=== PATIENT | male | born 1980 | race Caucasian/White ===

== ENCOUNTER 2021-09-02 06:27 | Emergency (ER) | payer OTHER, SELFPAY ==
[2021-09-02 06:30] VITALS: PULSE 117; RESP 16; TEMP 36.4; O2SAT 99
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
[2021-09-02] MEDS: Lidocaine 5% Patch 1 PATCH TP (06:50)
[2021-09-02] MEDS: Acetaminophen 500 MG TAB 1000 MG PO (06:51)
[2021-09-02] MEDS: predniSONE 20 MG TAB 60 MG PO (06:51)
[2021-09-02] MEDS: Ketorolac 30 MG/ML VIAL IM (06:51)
--- NOTE | 2021-09-02 07:24 | DI.RAD_ITS ---
Exam(s) XR LUMBAR SPINE COMPLETE EXAM: XR LUMBAR SPINE COMPLETE CLINICAL HISTORY: midline lower L4-L5 pain, hx of old injury TECHNIQUE: COMPARISON: No exams were available for comparison FINDINGS: Five views were obtained. The intervertebral disc spaces appear fairly well maintained. There is no evidence of fracture or dislocation. No evidence of spondylolysis or spondylolisthesis. IMPRESSION: No evidence of acute process. RADIATION DOSE DELIVERED: Total DLP
--- OUTSIDE RECORDS SUMMARY | 2021-09-02 08:03 | XMS_ITS | Continuity of Care Document ---
:1980 Author Organization [facility] Address [address] [place] [address] Allergies, Adverse Reactions, Alerts No Known Allergies Problem List Condition Effective Dates Status Health Status Informant Schizophrenia(Confirmed) Active Tobacco use(Confirmed) Active patie nt Encounter Date(s): 06/19/18 - 06/19/18 [facility] [address] [place] [address] [place] Encounter Diagnosis Psychosis (Discharge Diagnosis) - 06/19/18 Schizophrenia (Discharge Diagnosis) - 06/19/18 Hypercalcemia (Discharge Diagnosis) - 06/19/18 Discharge Disposition: Home or Self Care Attending Physician: MD Espinosa Neil Holland Admitting Physician: MD Jesús, Rob Desai Assessment and Plan Extracted from: Title: ED Note Author: MD Jesús, Rob Desai Date: 06/19/18 Physician Procedure Note No qualifying data available. Diagnostic Results No qualifying data available. Mental Status 06/19/18 Eye Opening Response Jessica Spontaneously Best Verbal Response [place] Oriented Best Motor Response Jessica Obeys commands Jessica Coma Score 15 Results Laboratory List Name Date .Estimated Glomerular Filtration Rate 06/19/18 Alcohol Level (ETOH) 06/19/18 Automated Diff 06/19/18 CBC w/ Diff 06/19/18 Comprehensive Metabolic Panel 06/19/18 Drugs of Abuse Screen, Urine 06/19/18 TSH Reflex 06/19/18 Urinalysis with Microscopic, if indicated (Urinalysis w/ Microscopic, if 06/19/18 indicated) Hematology Most recent to oldest [Reference Range]: 1 WBC [4.0-10.0 x10^3/mcL] 6.7 x10^3/mcL (06/19/18 9:12 PM) RBC [4.20-5.50 x10^6/mcL] 4.99 x10^6/mcL (06/19/18 9:12 PM) Hgb [14.0-18.0 g/dL] 14.6 g/dL (06/19/18 9:12 PM) Hct [41.0-51.0 %] 41.2 % (06/19/18 9:12 PM) MCV [82-101 fL] 82 fL (06/19/18 9:12 PM) MCH [27-34 pg] 29 pg (06/19/18 9:12 PM) MCHC [32-36 g/dL] 35 g/dL (06/19/18 9:12 PM) RDW [11.5-14.5 %] 12.6 % (06/19/18 9:12 PM) Platelets [150-450 x10^3/mcL] 207 x10^3/mcL (06/19/18 9:12 PM) Neutro Auto 70 % *NA* (06/19/18 9:12 PM) Lymph Auto 24 % *NA* (06/19/18 9:12 PM) [place] Auto 4 % *NA* (06/19/18 9:12 PM) Eos, Auto 1 % *NA* (06/19/18 9:12 PM) Basophil Auto 0 % *NA* (06/19/18 9:12 PM) Neutro Absolute [1.8-8.0 x10^3/mcL] 4.7 x10^3/mcL (06/19/18 9:12 PM) Lymph Absolute [1.2-5.0 x10^3/mcL] 1.6 x10^3/mcL (06/19/18 9:12 PM) [place] Absolute [0.2-0.8 x10^3/mcL] 0.3 x10^3/mcL (06/19/18 9:12 PM) Eos Absolute [0.0-0.5 x10^3/mcL] 0.0 x10^3/mcL (06/19/18 9:12 PM) Chemistry Most recent to oldest [Reference Range]: 1 Sodium Level [136-145 mEq/L] 133 mEq/L *LOW* (06/19/18 9:12 PM) Potassium Level [3.5-5.1 mEq/L] 4.0 mEq/L (06/19/18 9:12 PM) Chloride Level [98-110 mEq/L] 96 mEq/L *LOW* (06/19/18 9:12 PM) CO2 Lvl [20-28 mEq/L] 25 mEq/L (06/19/18 9:12 PM) Anion Gap [5-15 mEq/L] 12 mEq/L (06/19/18 9:12 PM) Calcium Level [8.5-10.4 mg/dL] 11.1 mg/dL *HI* (06/19/18 9:12 PM) Glucose Level [70-100 mg/dL] 301 mg/dL *HI* (06/19/18 9:12 PM) BUN [5-23 mg/dL] 10 mg/dL (06/19/18 9:12 PM) Creatinine Level [0.5-1.3 mg/dL] 1.0 mg/dL (06/19/18 9:12 PM) eGFR AA [>=60 mL/min/1.73 m2] 103 mL/min/1.73 m2 (06/19/18 9:12 PM) eGFR Non-AA [>=60 mL/min/1.73 m2] 85 mL/min/1.73 m2 (06/19/18 9:12 PM) Protein Total [6.4-8.2 g/dL] 7.7 g/dL (06/19/18 9:12 PM) Albumin Level [3.4-5.0 g/dL] 4.2 g/dL (06/19/18 9:12 PM) Bilirubin Total [0.0-1.0 mg/dL] 0.5 mg/dL (06/19/18 9:12 PM) Alk Phos [40-150 IntlUnit/L] 60 IntlUnit/L (06/19/18 9:12 PM) AST [0-37 IntlUnit/L] 50 IntlUnit/L *HI* (06/19/18 9:12 PM) ALT [0-65 IntlUnit/L] 82 IntlUnit/L *HI* (06/19/18 9:12 PM) Calc Osm [275-300 mOsm/L] 294 mOsm/L (06/19/18 9:12 PM) TSH [0.34-4.82 Microunit/mL] 1.17 Microunit/mL (06/19/18 9:12 PM) Toxicology Most recent to oldest [Reference Range]: 1 Alcohol Lvl [<=10 mg/dL] <10 mg/dL (06/19/18 9:12 PM) Alcohol % <0.010 g%-w/v *NA* (06/19/18 9:12 PM) Amphetamine Screen Ur [Neg] Neg (06/19/18 9:12 PM) Barbituate Screen Ur [Neg] Neg (06/19/18 9:12 PM) Benzodiazepines Ur [Neg] Neg (06/19/18 9:12 PM) Cannabinoid Screen Ur [Neg] Neg (06/19/18 9:12 PM) Cocaine Screen Ur [Neg] Neg (06/19/18 9:12 PM) U Methadone Scr [Neg] Neg (06/19/18 9:12 PM) U PCP Screen [Neg] Neg (06/19/18 9:12 PM) Opiate Screen Ur [Neg] Neg (06/19/18 9:12 PM) U Oxycodone Scr [Neg] Neg (06/19/18 9:12 PM) Urinalysis Most recent to oldest [Reference Range]: 1 UA Source Clean Catch (06/19/18 9:12 PM) UA Clarity [Clear] Clear (06/19/18 9:12 PM) UA Color [Yellow] Straw (06/19/18 9:12 PM) UA pH 6.0 (06/19/18 9:12 PM) UA Spec Grav [1.005-1.030] 1.000 *LOW* (06/19/18 9:12 PM) UA Glucose [Neg] >500 *ABN* (06/19/18 9:12 PM) UA Ketones [Neg] Neg (06/19/18 9:12 PM) UA Blood [Neg] Neg (06/19/18 9:12 PM) UA Protein [Neg] Neg (06/19/18 9:12 PM) UA Bili [Neg] Neg (06/19/18 9:12 PM) UA Urobilinogen <2.0 *NA* (06/19/18 9:12 PM) UA Nitrite [Neg] Neg (06/19/18 9:12 PM) UA Leuk Est [Neg] Neg (06/19/18 9:12 PM) UA Micro Ind? Not Indicated *NA* (06/19/18 9:12 PM) Vital Signs Most recent to oldest [Reference Range]: 1 Temperature Oral [35.8-37.3 Deg C] 37 Deg C (06/19/18 8:51 PM) Heart Rate Monitored [60-100] 131 *HI* (06/19/18 8:51 PM) Respiratory Rate [14-20 br/min] 22 br/min *HI* (06/19/18 8:51 PM) Systolic Blood Pressure [90-140 mmHg] 134 mmHg (06/19/18 8:51 PM) Diastolic Blood Pressure [60-90 mmHg] 116 mmHg *HI* (06/19/18 8:51 PM) Modified MEWS Temperature 35.5 - 38.0 DegC (06/19/18 8:50 PM) Modified MEWS Heart Rate 125 -139 bpm (06/19/18 8:50 PM) Modified MEWS Respiratory Rate 16 - 24 br/min (06/19/18 8:50 PM) Modified MEWS Systolic Blood Pressure 100 - 160 mmHg (06/19/18 8:50 PM) Modified MEWS Oxygen Saturation 92% - 100% (06/19/18 8:50 PM) Modified MEWS Conscious Level Alert (06/19/18 8:50 PM) Modified MEWS Total Score 2 (06/19/18 8:50 PM) Social History Social History Type Response Smoking Status 10 or more cigarettes/day in last 30 days; Type: Cigarettes; Tobacco use per day: 10 cigs per day; entered on: 06/19/18 Sex Hospital Discharge Instructions Patient Purjpkigp97/04/2019 20:10:32PSYCHOSISPsychosis Psychosis is a symptom of certain mental health problems. It involves perceiving reality differentlyfrom those around you. The difference between reality and what you think become blurred in your mind. Other mental health conditions, physical diseases, traumatic experiences, or drugs and toxins may bring on psychotic symptoms or behavior. There are different kinds of psychosis: ??? Drug-induced because of alcohol, methamphetamine, cocaine, LSD, PCP, or??others ??? Bipolar disorder ??? Depression ??? Schizophrenia ??? Dementia Symptoms The symptoms of psychosis may not all be the same for each person. But they usually involve: ??? Hallucinations. Seeing, hearing, feeling, or even tasting or smelling things that are not there ??? Delusions.??Believing something that is not true, or false beliefs that are not part of a person's sikhism or cultural background. There may also be disturbances in thinking, speech, and behavior, which can include: ??? Hearing voices that others do not hear ??? Seeing things that others do not see ??? Racing thoughts ??? Lack of energy ??? Feeling very fearful ??? Disorganized speech ??? Intentional or unintentional bodily harm to others ??? Paranoia ??? Trouble thinking or concentrating clearly ??? Depression, feeling suicidal ??? Insomnia ??? Withdrawal from those around you Treatment for psychosis depends on the cause. Medicine, with or without psychotherapy, is often used. Home care ??? Find a healthcare provider and therapist who meet your needs. ??Seek help when you feel like your symptoms are returning ??? Be certain to tell each of your healthcare providers about all of the prescription drugs, [id number] medicines, and supplements you take.??Certain supplements interact with medicines and can result in dangerous side effects.??Ask your pharmacist when you have questions about drug interactions. ??? Be sure to take your medicine as directed even if you think you don't need it. ??? Follow-up with lab tests as advised by your healthcare provider. ??? Talk with your family about your feelings and thoughts. Ask them to help you recognize any behavior changes so you can get help and, if needed, medicines can be adjusted. Follow-up care Follow up with your counselor, therapist or psychiatrist as advised. Call 911 Call 911 if you: ??? Have suicidal thoughts, a suicide plan, and the means to carry out the plan ??? Have troubled breathing ??? Are very confused ??? Are very drowsy or have trouble awakening ??? Faint or lose??consciousness ??? Have a rapid heart rate, very low heart rate, or a new irregular heart rate ??? Have a seizure When to seek medical advice Call your healthcare provider right away if any of these occur: ??? Gradual or rapid return of psychotic symptoms ??? Feeling like you want to harm yourself or another ??? Feeling extremely depressed ??? Feeling very anxious, agitated, or angry ??? Feeling out of control or being controlled by others ??? Unable to care for yourself ??? Seeing things or hearing voices that you know aren't real ?? [id number] [employer]. [address] [place] [address], [place] [address]. All rights reserved. This information is not intended as a substitute for professional medical care. Always follow your healthcare professional's instructions. Follow Up Care06/19/2018 20:10:32With:Follow up with Primary Care Provider Address:Unknown When:Within 1 Week(s) only if needed
--- OUTSIDE RECORDS SUMMARY | 2021-09-02 08:03 | XMS_ITS | Continuity of Care Document ---
:1980 Author Organization [facility] Address [address] [place] [id number] Encounter Date(s): 08/06/20 - 08/06/20 [facility] [address] [place] [address] [place] Encounter Diagnosis Acute chest pain (Discharge Diagnosis) - 08/06/20 Discharge Disposition: Home or Self Care Attending Physician: DO Montalvo Christopher Justin Admitting Physician: DO Montalvo Christopher Justin Allergies, Adverse Reactions, Alerts No Known Allergies Assessment and Plan Extracted from: Title: ED Note Author: DO Montalvo Christopher Justin Da te: 08/06/20 Physician Procedure Note No qualifying data available. Diagnostic Results XR Chest 2 Views ?? 08/06/20 17:26:53 ?? PROCEDURE: 2 views chest ?? Date: 08/06/2020 5:17 PM ?? HISTORY: 39 years old Male. Chest pain ?? COMPARISON: None ?? FINDINGS: ?? The trachea is midline. The heart size is within normal limits. The lungs are adequately aerated.. There is no focal consolidation . There is no pneumothorax noted. ?? There is no evidence of decompensated h eart failure . There is no evidence of a pleural effusion. ? IMPRESSION: ?? 1. No acute pulmonary process. ?? Signed By: MD Rustam FACR, Peña franco EKG Sinus tachycardia, rate 101, normal axis, normal UT and QT intervals, normal QRS duration, no ST segment elevations Mental Status 08/06/20 Eye Opening Response [place] Spontaneously Best Verbal Response [place] Oriented Best Motor Response Jessica Obeys commands Jessica Coma Score 15 Problem List Condition Effective Dates Status Health Status Informant Schizophrenia(Confirmed) Active Results Laboratory List Name Date .Estimated Glomerular Filtration Rate 08/06/20 Automated Diff 08/06/20 CBC w/ Diff 08/06/20 Comprehensive Metabolic Panel (Chem 12) 08/06/20 Lipase Level 08/06/20 Troponin I 08/06/20 Hematology Most recent to oldest [Reference Range]: 1 WBC [4.0-10.0 x10^3/mcL] 8.1 x10^3/mcL (08/06/20 4:46 PM) RBC [4.20-5.50 x10^6/mcL] 5.08 x10^6/mcL (08/06/20 4:46 PM) Hgb [14.0-18.0 g/dL] 15.0 g/dL (08/06/20 4:46 PM) Hct [41.0-51.0 %] 43.0 % (08/06/20 4:46 PM) MCV [82-101 fL] 85 fL (08/06/20 4:46 PM) MCH [27-34 pg] 30 pg (08/06/20 4:46 PM) MCHC [32-36 g/dL] 35 g/dL (08/06/20 4:46 PM) RDW [11.5-14.5 %] 12.2 % (08/06/20 4:46 PM) Platelets [150-450 x10^3/mcL] 181 x10^3/mcL (08/06/20 4:46 PM) Neutro Auto 61 % *NA* (08/06/20 4:46 PM) Lymph Auto 33 % *NA* (08/06/20 4:46 PM) [place] Auto 4 % *NA* (08/06/20 4:46 PM) Eos, Auto 2 % *NA* (08/06/20 4:46 PM) Basophil Auto 0 % *NA* (08/06/20 4:46 PM) Neutro Absolute [1.8-8.0 x10^3/mcL] 4.9 x10^3/mcL (08/06/20 4:46 PM) Lymph Absolute [1.2-5.0 x10^3/mcL] 2.7 x10^3/mcL (08/06/20 4:46 PM) [place] Absolute [0.2-0.8 x10^3/mcL] 0.4 x10^3/mcL (08/06/20 4:46 PM) Eos Absolute [0.0-0.5 x10^3/mcL] 0.1 x10^3/mcL (08/06/20 4:46 PM) Basophil Absolute [0.0-0.3 x10^3/mcL] 0.0 x10^3/mcL (08/06/20 4:46 PM) Chemistry Most recent to oldest [Reference Range]: 1 Sodium Level [136-145 mEq/L] 136 mEq/L (08/06/20 4:46 PM) Potassium Level [3.5-5.1 mEq/L] 3.7 mEq/L (08/06/20 4:46 PM) Chloride Level [98-110 mEq/L] 98 mEq/L (08/06/20 4:46 PM) CO2 Lvl [20-28 mEq/L] 27 mEq/L (08/06/20 4:46 PM) Anion Gap [5-15 mEq/L] 11 mEq/L (08/06/20 4:46 PM) Calcium Level [8.5-10.4 mg/dL] 9.5 mg/dL (08/06/20 4:46 PM) Glucose Level [70-100 mg/dL] 106 mg/dL *HI* (08/06/20 4:46 PM) BUN [5-23 mg/dL] 15 mg/dL (08/06/20 4:46 PM) Creatinine Level [0.5-1.3 mg/dL] 0.8 mg/dL (08/06/20 4:46 PM) eGFR AA [>=60 mL/min/1.73 m2] 123 mL/min/1.73 m2 (08/06/20 4:46 PM) eGFR Non-AA [>=60 mL/min/1.73 m2] 101 mL/min/1.73 m2 (08/06/20 4:46 PM) Protein Total [6.4-8.2 g/dL] 7.4 g/dL (08/06/20 4:46 PM) Albumin Level [3.4-5.0 g/dL] 4.3 g/dL (08/06/20 4:46 PM) Bilirubin Total [0.0-1.0 mg/dL] 0.4 mg/dL (08/06/20 4:46 PM) Alk Phos [40-150 IntlUnit/L] 65 IntlUnit/L (08/06/20 4:46 PM) AST [0-37 IntlUnit/L] 15 IntlUnit/L (08/06/20 4:46 PM) ALT [0-65 IntlUnit/L] 24 IntlUnit/L (08/06/20 4:46 PM) Calc Osm [275-300 mOsm/L] 291 mOsm/L (08/06/20 4:46 PM) Lipase Level [8-78 IntlUnit/L] 30 IntlUnit/L (08/06/20 4:46 PM) Troponin-I [<=0.03 ng/mL] 0.00 ng/mL (08/06/20 4:46 PM) Radiology Reports Exam Date Time Procedure Performing Provider Status 08/06/20 5:18 PM XR Chest 2 Views Vesna Razo; Dhruv (Verif ied) Notes:(XR Chest 2 Views) Reason For Exam: Chest painFinal Result PROCEDURE: 2 views chest Date: 08/06/2020 5:17 PM HISTORY: 39 years old Male. Chest pain COMPARISON: None FINDINGS: The trachea is midline. The heart size is within normal limits. The lungs are adequately aerated..There is no focal consolidation . There is no pneumothorax noted. There is no evidence of decompensated heart failure . There is no evidence of a pleural effusion. IMPRESSION: 1. No acute pulmonary process. Final Signed by: MD Rustam FACR, Peña Griggs Signed (Electronic Signature): 08/06/2020 5:30 pm Vital Signs Most recent to oldest 1 2 3 [Reference Range]: Temperature Oral [36-38 Deg C] 36.8 Deg C 36.8 Deg C (08/06/20 4:42 PM) (08/06/20 4:30 PM) Peripheral Pulse Rate [60-100 100 bpm 100 bpm bpm] (08/06/20 4:42 PM) (08/06/20 4:30 PM) Heart Rate Monitored [60-100] 98 104 (08/06/20 6:52 PM) *HI* (08/06/20 5:31 PM) Respiratory Rate [14-20 br/min] 16 br/min 17 br/min 19 br/min (08/06/20 6:52 PM) (08/06/20 5:31 PM) (08/06/20 4:4 2 PM) Blood Pressure [90-140/60-90 146/88 mmHg 145/87 mmHg 145 /100 mmHg mmHg] *HI* *HI* *HI* (08/06/20 6:52 PM) (08/06/20 5:31 PM) (08/06/20 4:4 2 PM) Mean Arterial Pressure, Cuff 108 mmHg 113 mmHg [65-140 mmHg] (08/06/20 6:52 PM) (08/06/20 4:42 PM) Modified MEWS Temperature 35.5 - 38.0 DegC (08/06/20 4:30 PM) Modified MEWS Heart Rate 56 - 109 bpm (08/06/20 4:30 PM) Modified MEWS Respiratory Rate 16 - 24 br/min (08/06/20 4:30 PM) Modified MEWS Systolic Blood 100 - 160 mmHg Pressure (08/06/20 4:30 PM) Modified MEWS Oxygen Saturation 92% - 100% (08/06/20 4:30 PM) Modified MEWS Conscious Level Alert (08/06/20 4:30 PM) Modified MEWS Total Score 0 (08/06/20 4:30 PM) Social History Social History Type Response Smoking Status 10 or more cigarettes/day in last 30 days; Type: Cigarettes; Tobacco use per day: 10 cigs per day; entered on: 08/06/20 Sex Hospital Discharge Instructions Patient Svjeicsqe69/24/2021 18:44:29Chest Pain, Uncertain CauseUncertain Causes of Chest Pain Chest pain can happen for a number of reasons. Sometimes the cause can't be determined. If your??condition does not seem serious, and your pain does not appear to be coming from your heart, your healthcare provider may recommend watching it closely. Sometimes the signs of a serious problem take more time to appear. Many problems not related to your heart can cause chest pain. These include: ???Musculoskeletal. Costochondritis is an inflammation of the tissues around the ribs that can occurfrom trauma or overuse injuries, or a strain of the muscles of the chest wall ???Respiratory. Pneumonia, collapsed lung (pneumothorax), or inflammation of the lining of the chestand lungs (pleurisy) ???Gastrointestinal. Esophageal reflux, heartburn, ulcers, or gallbladder disease ???Anxiety and panic disorders ???Nerve compression and inflammation ???Rare miscellaneous problems such as aortic aneurysm (a swelling of the large artery coming out ofthe heart) or pulmonary embolism (a blood clot in the lungs) Home care After your visit, follow these recommendations: ???Rest today and avoid strenuous activity. ???Take any prescribed medicine as directed. ???Be aware of any recurrent chest pain and notice any changes Follow-up care Follow up with your healthcare provider if you do not start to feel better within 24 hours, or as advised. Call 911 Call 911 if any of these occur: ???A change in the type of pain: if it feels different, becomes more severe, lasts longer, or beginsto spread into your shoulder, arm, neck, jaw or back ???Shortness of breath or increased pain with breathing ???Weakness, dizziness, or fainting ???Rapid heart beat ???Crushing sensation in your chest When to seek medical advice Call your healthcare provider right away if any of the following occur: ???Cough with dark colored sputum (phlegm) or blood ???Fever of 100.4??F??(38??C) or higher, or as directed by your healthcare provider ???Swelling, pain or redness in one leg ?? [id number] [employer]. All rights reserved. This information is not intended as a substitute for professional medical care. Always follow your healthcare professional's instructions. Follow Up Care08/06/2020 16:25:21With:Follow up with primary care provider Address:Unknown When:08/13/2020 18:44:24 Comments:For reevaluation.
--- OUTSIDE RECORDS SUMMARY | 2021-09-02 08:03 | XMS_ITS | Continuity of Care Document ---
:1980 Author Organization [facility] Address [address] [place] [id number] Encounter Date(s): 04/15/20 - 04/16/[address] [place] [address] [place] Discharge Disposition: Home or Self Care Attending Physician: DANIEL Markham Paul W Admitting Physician: DANIEL Markham Paul W Referring Physician: DANIEL Markham Paul W Allergies, Adverse Reactions, Alerts No Known Allergies Problem List Condition Effective Dates Status Health Status Informant Schizophrenia(Confirmed) Active Social History Social History Type Response Smoking Status 10 or more cigarettes/day in last 30 days; Type: Cigarettes; Tobacco use per day: 10 cigs per day; entered on: 06/19/18 Sex
--- NOTE | 2021-09-02 08:11 | NUR.NOTE ---
Nursing Note: Referral given to Care Management [facility] month for routine follow up. Hedy Blanchard
== END 2021-09-02 07:55 | disposition home or self-care (01) ==
LOC: ER 08:01
PROVIDERS: Emergency Provider Student in an Organized Health Care Education/Training Program
DX: M54.50 Low back pain, unspecified (principal); G89.29 Other chronic pain
CPT/HCPCS: 96372; 99284; 72110; 99283; J1885; J7512